=== PATIENT | male | born 1980 | race Caucasian/White ===

== ENCOUNTER 2016-10-26 14:29 | Emergency (ER) | payer BC ==
--- NOTE | 2016-10-26 14:43 | PDOC ---
Foot / Ankle Injury - General Chief Complaint: Lower Extremity Problem/Injury Stated Complaint: ANKLE INJURY Date Seen by Provider: 10/26/16 Time Seen by Provider: 14:30 Source: POSITIVE: Patient Exam Limitations: POSITIVE: No limitations Nurse's Notes Reviewed & Considered: Yes - History of Present Illness Initial Comments: The patient is a 36-year-old male who is evaluated with left ankle pain. He states that he rolled his left ankle at work 2-3 days ago. He states that he stepped in a hole on the deck of his equipment causing him to roll his left ankle. He has continued to work nights since the injury. He has increased pain with stepping and bearing weight on the left foot. He also states that his ankle has rolled several times just walking since the injury occurred. He has been taking Tylenol without any pain relief. He denies any other associated injuries or complaints. He denies any prior history of left ankle injury. Have you received a tetanus shot in the past 10 years?: Unknown - Patient Allergies Allergies/Adverse Reactions: Allergies Allergy/AdvReac Type Severity Reaction Status Date / Time prednisone Allergy HIVES Verified 10/26/16 14:34 - Patient Home Medications Home Medications: Home Medications Acetaminophen [Tylenol] 1,000 mg PO PRN 10/26/16 HYDROcodone/APAP 7.5/325 Tab [Holly 7.5/325 Tab] 1 each PO Q6H PRN #5 tablet 10/26/16 Past Medical History Past Medical History Reviewed: Other (please comment) (The patient denies any other medical problems other than ulcerative colitis for which he has not had any recent flares and takes no prescription medications.) ROS - Limitations ROS Limitations: No Limitations (Review of systems otherwise noncontributory) Foot / Ankle Exam - General Appearance General Appearance: POSITIVE: Alert, Cooperative, No Acute Distress - Extremities Ankle: POSITIVE: Other (examination left ankle does reveal some swelling noted to the medial aspect of his ankle, tenderness over the medial malleolus, good dorsalis pedis pulse in the left foot) Neuro: POSITIVE: Sensation Normal, Motor Normal Vascular: POSITIVE: No Vascular Compromise Foot / Ankle Progress - Results Reviewed by me Xrays/CTs/US Reviewed by me: Yes Radiology Findings: X-ray of the left ankle is negative for fracture. - Patient's Progress MDM / ED Course: X-ray findings were discussed with the patient. He was placed in an Lorenzo wrap and air stirrup splint. He wants to try to finish out his current work cycle working nights the next 3 nights. He states that after that he has a 2 week period of time off. He is advised that the more he is up and walking on the left foot and ankle the more likely it is going to be aggravated. He reports that he cannot take NSAID medications because of his ulcerative colitis. He was prescribed Holly 7.5/325 which she can take one every 6 hours as needed for pain. He is advised not to drive or operate equipment if he is taking this medication. He will return to the emergency room if any worsening pain or change in symptoms. He is advised follow-up with primary care or orthopedic surgery if continued pain in one week. - Consult Counseled: POSITIVE: Patient, RE: Radiology Results, RE: DX, RE: Need for F/U Patient Care Time - Estimated PCT Patient Care Time (In Minutes): 15 Vital Signs - Recent Vital Signs Vital Signs: Vital Signs (Last 8 hours) Temp Pulse Resp BP Pulse Ox 10/26/16 14:36 97 F 63 16 142/76 97 - VS Reviewed Vital Signs Reviewed: Yes Discharge Clinical Impression: Sprain of ankle Discharge Disposition: Discharged to Home Condition: Stable Prescriptions / Orders: HYDROcodone/APAP 7.5/325 Tab [Holly 7.5/325 Tab] 1 each PO Q6H PRN #5 tablet PRN Reason: Pain Patient Instructions Given at Discharge: Ankle Sprain (ED) Additional Instructions: The x-ray of the left ankle did not reveal any fracture. There is likely a sprain of the ligament on the inside of your ankle. Recommend Lorenzo wrap and/or air splint for comfort. Ice and elevate the left ankle. You have been prescribed Holly 7.5/325 which he can take one every 6 hours as needed for severe pain. Do not drive or operate equipment if taking this medication. Return to the emergency room if increased pain or swelling. Recommend follow- up with primary care or orthopedic surgery if continued pain in one week. Follow Up With: NONE,NONE [Primary Care Provider] -
[2016-10-26 14:46] VITALS: RESP 16; TEMP 97
--- NOTE | 2016-10-27 12:56 | DI ---
XR ANKLE COMPLETE MIN 3VW,10/26/2016 2:35 PM: Clinical History: Continued pain after injury. Previous Exam: None at this facility. Findings: Multiple views of the left ankle are obtained, and demonstrate anatomic alignment without fractures. There is some soft tissue prominence. Impression: No fracture.
== END 2016-10-26 15:17 | disposition home or self-care (01) ==
LOC: ER 14:29
DX: S93.402A Sprain of unspecified ligament of left ankle, initial encounter (principal); W18.42XA Slipping, tripping and stumbling without falling due to stepping into hole or opening, initial encounter; Y99.0 Civilian activity done for income or pay
CPT/HCPCS: 73610; 99282